=== PATIENT | female | born 1950 | race Caucasian/White ===

== ENCOUNTER 2020-02-10 14:58 | Emergency (ER) | payer MEDICARE, OTHER ==
[~2020-02-10] VITALS: Ht 165.1 cm; Wt 95.4 kg
--- NOTE | 2020-02-10 15:28 | ED Respiratory ---
General Chief Complaint: Respiratory Problems Stated Complaint: SOB History of Present Illness Date Seen by Provider: Feb 10, 2020 Time Seen by Provider: 15:10 Initial Comments This patient is a 69-year-old female that presents to the emergency department with her with complaint of shortness of breath. Patient states both her and her are positive COVID-19 patient's diagnosed 2 days ago. Patient states that they both have been short of breath and sick since Friday which was 5 days ago. Patient states that she feels like she is getting worse. Patient states that she feels like she is filling up with fluid. Patient's pulse ox on room air is 93% and the patient does not appear to be in acute distress. Patient denies fever. We'll do medical evaluation treatment is needed. Patient states she does have a history of hypertension and diabetes. Timing/Duration: week Severity: moderate Modifying Factors: Improves With Activity Associated Symptoms: cough, shortness of breath Allergies and Home Medications Allergies Coded Allergies: fentanyl (Verified Allergy, Unknown, 02/10/20) meperidine (Verified Allergy, Unknown, 02/10/20) simvastatin (Verified Allergy, Unknown, 02/10/20) Uncoded Allergies: metal (Adverse Reaction, Unknown, 02/10/20) Patient Home Medication List Home Medication List Reviewed: Yes Review of Systems Review of Systems Constitutional: No no symptoms reported, No see HPI, No chills, No diaphoresis, No dizziness, No fever; malaise; No weakness, No weight gain, No weight loss, No other EENTM: No see HPI, No no symptoms reported, No ear discharge, No hearing loss, No ear pain, No blurred vision, No double vision, No eye pain, No tearing, No vision loss, No dental problems, No hoarseness, No mouth pain, No mouth swelli ng, No epistaxis, No nose congestion, No nose pain, No throat pain, No throat swelling, No other Respiratory: No no symptoms reported; see HPI, cough, dyspnea on exertion; No hemoptysis, No orthopnea; short of breath; No stridor, No wheezing, No other Cardiovascular: No no symptoms reported, No see HPI, No chest pain, No edema, No Hx of Intervention, No palpitations, No syncope, No vascular heart diseas, No other Gastrointestinal: No RUQ, No LUQ, No RLQ, No LLQ, No no symptoms reported, No see HPI, No abdominal pain, No constipation, No diarrhea, No dysphagia, No stanislav temesis, No heartburn, No jaundice, No loss of appetite, No melena, No nausea, No vomiting, No other Genitourinary: No no symptoms reported, No see HPI, No decreased output, No discharge, No dysuria, No frequency, No hematuria, No hesitancy, No incontinence, No nocturia, No pain, No other Musculoskeletal: No no symptoms reported, No see HPI, No back pain, No gout, No joint pain, No joint swelling, No muscle pain, No muscle stiffness, No muscle cramps, No muscle twitching, No muscle weakness, No neck pain, No other Skin: No no symptoms reported, No see HPI, No change in color, No change in hair/nails, No dryness, No hx of skin cancer, No lesions, No lumps, No pruritus, No rash, No other All Other Systems Reviewed Negative Unless Noted: Yes Past Npzrvrn-[id number]-Rduoqh Hx Patient Social History Recent Foreign Travel: No Contact w/Someone Who Travel: No Physical Exam Vital Signs - First Documented 02/10/20 15:55 Temp 37.2 Pulse 93 Resp 20 B/P (MAP) 155/74 (101) Pulse Ox 93 O2 Delivery Room Air Capillary Refill : Height: '" Weight: lbs. oz. 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, no motor/sensory deficits, alert, normal mood/affect, oriented x 3 Skin: normal color, warm/dry, cyanosis, cool, diaphoresis, damp Focused Exam Lactate Level 02/10/20 15:59: Lactic Acid Level 1.99 Lactic Acid Level Laboratory Tests Test 02/10/20 15:59 Lactic Acid Level 1.99 MMOL/L (0.50-2.00) Progress/Results/Core Measures Suspected Sepsis SIRS Temperature: Pulse: Respiratory Rate: Laboratory Tests 02/10/20 15:59: White Blood Count 4.1L Blood Pressure / Mean: 02/10/20 15:59: Lactic Acid Level 1.99 Laboratory Tests 02/10/20 15:59: Creatinine 0.95, INR Comment 0.9, Platelet Count 182, Total Bilirubin 0.5 Results/Orders Lab Results Laboratory Tests Test 02/10/20 15:59 Range/Units White Blood Count 4.1 L 4.3-11.0 10^3/uL Red Blood Count 4.64 4.35-5.85 10^6/uL Hemoglobin 14.5 11.5-16.0 G/DL Hematocrit 42 35-52 % Mean Corpuscular Volume 89 80-99 FL Mean Corpuscular Hemoglobin 31 25-34 PG Mean Corpuscular Hemoglobin Concent 35 32-36 G/DL Red Cell Distribution Width 12.9 10.0-14.5 % Platelet Count 182 130-400 10^3/uL Mean Platelet Volume 10.4 7.4-10.4 FL Neutrophils (%) (Auto) 35 L 42-75 % Lymphocytes (%) (Auto) 54 H 12-44 % Monocytes (%) (Auto) 11 0-12 % Eosinophils (%) (Auto) 1 0-10 % Basophils (%) (Auto) 0 0-10 % Neutrophils # (Auto) 1.4 L 1.8-7.8 X 10^3 Lymphocytes # (Auto) 2.2 1.0-4.0 X 10^3 Monocytes # (Auto) 0.5 0.0-1.0 X 10^3 Eosinophils # (Auto) 0.0 0.0-0.3 10^3/uL Basophils # (Auto) 0.0 0.0-0.1 10^3/uL Prothrombin Time 12.3 12.2-14.7 SEC INR Comment 0.9 0.8-1.4 Sodium Level 139 135-145 MMOL/L Potassium Level 3.3 L 3.6-5.0 MMOL/L Chloride Level 99 98-107 MMOL/L Carbon Dioxide Level 27 21-32 MMOL/L Anion Gap 13 5-14 MMOL/L Blood Urea Nitrogen 16 7-18 MG/DL Creatinine 0.95 0.60-1.30 MG/DL Estimat Glomerular Filtration Rate 58 BUN/Creatinine Ratio 17 Glucose Level 118 H 70-105 MG/DL Lactic Acid Level 1.99 0.50-2.00 MMOL/L Calcium Level 10.4 H 8.5-10.1 MG/DL Corrected Calcium 10.2 H 8.5-10.1 MG/DL Total Bilirubin 0.5 0.1-1.0 MG/DL Aspartate Amino Transf (AST/SGOT) 39 H 5-34 U/L Alanine Aminotransferase (ALT/SGPT) 40 0-55 U/L Alkaline Phosphatase 43 40-136 U/L Troponin I < 0.30 <0.30 NG/ML Pro-B-Type Natriuretic Peptide 14.9 <75.0 PG/ML Total Protein 7.5 6.4-8.2 GM/DL Albumin 4.3 3.2-4.5 GM/DL My Orders Orders - MAURIZIO MCMAHON MD Ed Iv/Invasive Line Start (02/10/20 15:18) Ekg Tracing (02/10/20 15:18) Chest 1 View Ap/Pa Only (02/10/20 15:18) Cbc With Automated Diff (02/10/20 15:18) Comprehensive Metabolic Panel (02/10/20 15:18) Blood Culture (02/10/20 15:18) Protime With Inr (02/10/20 15:18) Probnp Fs (02/10/20 15:18) Troponin I Fs (02/10/20 15:18) Lactic Acid Analyzer (02/10/20 15:18) Blood Culture (02/10/20 15:35) Vital Signs/I&O 02/10/20 15:55 Temp 37.2 Pulse 93 Resp 20 B/P (MAP) 155/74 (101) Pulse Ox 93 O2 Delivery Room Air Capillary Refill : Progress Note : Time: 16:43 Progress Note IMPRESSION: Negative chest Negative evaluation in the emergency department. Patient due to positive lopez test for coronavirus patient is to self quarantine for 14 days continue to soak social distance and wear mask. Patient is to encourage by mouth fluids humi difier home air. And take medications as instructed. Return to the emergency department if symptoms failed to improve or worsen. ECG Initial ECG Impression Date: Feb 10, 2020 Initial ECG Impression Time: 16:11 Initial ECG Rate: 66 Initial ECG Rhythm: Normal Sinus Initial ECG Intervals: Normal Initial ECG Impression: Nonspecific Changes (sinus rhythm with a heart rate is 66 left axis deviation and nonspecific EKG changes.) Departure Impression Primary Impression: COVID-19 Additional Impression: Viral upper respiratory infection Disposition: 01 HOME, SELF-CARE Condition: Stable Departure-Patient Inst. Decision time for Depature: 17:18 Referrals: [facility] (PCP) Primary Care Physician IGNACIA PRESCOTT (Family) Primary Care Physician Patient Instructions: Viral Upper Respiratory Infection, Adult (DC), Coronavirus Disease 2019 (COVID-19) Overview Add. Discharge Instructions: Negative evaluation in the emergency department. Patient due to positive lopez test for coronavirus patient is to self quarantine for 14 days continue to soak social distance and wear mask. Patient is to encourage by mouth fluids humidifier home air. And take medications as instructed. Return to the emergency department if symptoms failed to improve or worsen. All discharge instructions reviewed with patient and/or family. Voiced understanding. Scripts Azithromycin (Azithromycin) 250 Mg Tablet 250 MG PO UD, #6 TAB TAKE 2 TABLETS ON DAY ONE THEN TAKE 1 TABLET DAILY FOR FOUR MORE DAYS Prov: MAURIZIO MCMAHON MD 02/10/20 Albuterol Sulfate (VENTOLIN HFA) 1 Puff Puff 2 PUFF INH Q4H for 10 Days, #1 PUFF 0 Refills 1 PUFF = 90 MCG Prov: MAURIZIO MCMAHON MD 02/10/20 MAURIZIO MCMAHON MD Feb 10, 2020 15:28
[2020-02-10 16:18] LABS: HEMATOCRIT 42 % (35-52); HEMOGLOBIN 14.5 G/DL (11.5-16.0); MEAN CORPUSCULAR VOLUME 89 FL (80-99); WHITE BLOOD COUNT 4.1 10^3/uL (4.3-11.0)
[2020-02-10 16:19] LABS: BASOPHILS % (AUTO) 0 % (0-10); EOSINOPHILS % (AUTO) 1 % (0-10); LYMPHOCYTES % (AUTO) 54 % (12-44); MEAN CORPUSCULAR HEMOGLOBIN 31 PG (25-34); MEAN CORPUSCULAR HGB CONC 35 G/DL (32-36); MEAN PLATELET VOLUME 10.4 FL (7.4-10.4); MONOCYTES % (AUTO) 11 % (0-12); NEUTROPHILS % (AUTO) 35 % (42-75); PLATELET COUNT 182 10^3/uL (130-400)
[2020-02-10 16:20] LABS: LYMPHOCYTES # (AUTO) 2.2 X 10^3 (1.0-4.0); MONOCYTES # (AUTO) 0.5 X 10^3 (0.0-1.0); NEUTROPHILS # (AUTO) 1.4 X 10^3 (1.8-7.8)
--- NOTE | 2020-02-10 16:26 | Diagnostic Imaging Report ---
Indication: Shortness of breath,: Portable chest 4:12 PM Heart size and pulmonary vascularity are normal. Lungs are clear. There are no effusions or pneumothoraces. IMPRESSION: Negative chest Dictated by: Dictated on workstation # [id number]
[2020-02-10 16:30] LABS: INR 0.9 (0.8-1.4); PROTHROMBIN TIME PATIENT 12.3 SEC (12.2-14.7)
[2020-02-10 16:56] LABS: BUN/CREATININE RATIO 17; CARBON DIOXIDE 27 MMOL/L (21-32); CHLORIDE 99 MMOL/L (98-107); CREATININE SERUM 0.95 MG/DL (0.60-1.30); GFR ESTIMATED 58; POTASSIUM 3.3 MMOL/L (3.6-5.0); SODIUM 139 MMOL/L (135-145)
[2020-02-10 16:57] LABS: ALANINE AMINOTRANSFERASE 40 U/L (0-55); ALBUMIN 4.3 GM/DL (3.2-4.5); ALKALINE PHOSPHATASE 43 U/L (40-136); BILIRUBIN,TOTAL 0.5 MG/DL (0.1-1.0); CALCIUM 10.4 MG/DL (8.5-10.1); GLUCOSE 118 MG/DL (70-105); TOTAL PROTEIN 7.5 GM/DL (6.4-8.2)
[2020-02-10] MEDS ORDERED: RT-ALBUINH INH (17:20)
[2020-02-10] MEDS ORDERED: AZIT250T12 PO (17:20)
[2020-02-10 17:37] VITALS: BP 162/68
== END 2020-02-10 17:37 | disposition home or self-care (01) ==
LOC: ER FS 15:01
DX: U07.1 COVID-19 (principal); J06.9 Acute upper respiratory infection, unspecified; Z88.8 Allergy status to other drugs, medicaments and biological substances; Z88.5 Allergy status to narcotic agent
CPT/HCPCS: 36415; 71045; 80053; 83605; 83880; 84484; 85025; 85610; 87040; 93005